=== PATIENT | female | born 1975 ===

== ENCOUNTER 2021-03-30 10:08 | Emergency (ER) | payer SELFPAY ==
[2021-03-30 10:43] VITALS: BP 150/83
--- NOTE | 2021-03-30 12:36 | Emergency Department Report ---
ED General Adult HPI - General Chief complaint: Extremity Problem,Nontraumatic Stated complaint: LT HIP PAIN Time Seen by Provider: 03/30/21 12:12 Source: patient Mode of arrival: Wheelchair Limitations: Physical Limitation - History of Present Illness Initial comments: 45-year-old female patient with history of "fatty tissue tumors" presents to the emergency department with complaints of acute exacerbation of chronic bilateral hip pain worsening over the course of this week. Patient states the pain became worse with ambulation today, prompting her to come to the emergency department. Pain is worse on the left hip. 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 She was under the care of a vascular surgeon for this issue in [place] until last year, but she has since relocated to [place] and has not establish care with a specialist here. She has taken Tylenol for pain. No new fall, trauma, injury. Pain is consistent with prior flareups. Denies fever, chills, back pain, paresthesias, numbness, weakness, loss of bladder/bowel control, urinary retention, skin color changes. Denies all other complaints at this time. - Related Data Previous Rx's Medication Instructions Recorded Last Taken Type Lidocaine [Lidoderm] 1 each TP BID #20 adh..patch 03/30/21 Unknown Rx Naproxen 500 mg PO BID #20 tablet 03/30/21 Unknown Rx Allergies Allergy/AdvReac Type Severity Reaction Status Date / Time No Known Allergies Allergy Unverified 03/30/21 10:42 ED Review of Systems ROS: Stated complaint: LT HIP PAIN Other details as noted in HPI Other: GENERAL: Negative for fever. CARDIOVASCULAR: Negative for chest pain. PULMONARY: Negative for shortness of breath. GASTROINTESTINAL: Negative for abdominal pain. MUSCULOSKELETAL: Positive for hip pain. NEUROLOGICAL: Negative for headache. INTEGUMENTARY: Negative for rash. ED Past Medical Hx - Past Medical History Previous Medical History?: No - Surgical History Additional Surgical History: right hip surgery, TL, gallbladder - Medications Home Medications: Home Medications Medication Instructions Recorded Confirmed Last Taken Type Lidocaine [Lidoderm] 1 each TP BID #20 adh..patch 03/30/21 Unknown Rx Naproxen 500 mg PO BID #20 tablet 03/30/21 Unknown Rx ED Physical Exam - General Limitations: Physical Limitation - Other Other exam information: General: Awake and alert. No acute distress. BMI >30 kg. Head: Atraumatic, normocephalic. Eyes: EOMI. Pupils are equal and round. Normal sclera and conjunctiva. ENT: Oral mucosa is moist. Normal pharyngeal exam. Neck: Supple. No lymphadenopathy. Pulmonary: No respiratory distress. Clear to auscultation bilaterally. Cardiac: Regular rate and rhythm. Pulses are palpable and equal bilaterally. No lower extremity cyanosis or edema. 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 No overlying warmth or erythema. No crepitus. No necrosis. No bony tenderness. Distal neurovascular and motor/sensory function intact. Abdomen: Soft, non-tender, non-protuberant. No guarding, rigidity, or rebound. Bowel sounds are normal. No organomegaly or masses noted. Back: Normal alignment. No CVA tenderness. Extremities: Symmetrical. Full range of motion intact. Neurological: Alert and oriented, appropriately interactive, no focal deficits. Psych: Cooperative. Appropriate mood and affect. Speech is evenly metered. Thoughts are logically construed. ED Course Vital Signs 03/30/21 10:41 Temperature 98.3 F Pulse Rate 70 Respiratory 20 Rate Blood Pressure 150/83 O2 Sat by Pulse 100 Oximetry ED Medical Decision Making - Medical Decision Making Patient presents to the emergency department with acute exacerbation of chronic bilateral hip pain. She is afebrile. Vital signs are stable. She is neurovascularly intact. Patient has previously been diagnosed with benign masses in both of these areas. No trauma. She is not currently under the care of a specialist since relocating to the [facility]. Patient was previously under the care of a vascular surgeon. Current pain is consistent with prior flareups. No clinical indication for further diagnostic work-up on an emergent basis at this time. She will be discharged home with short course of appropriate analgesics and referred to local vascular surgeon for further evaluation on an outpatient basis. Patient expressed understanding and is agreeable to plan of care. Strict return precautions provided. Repeat exam is unremarkable and benign. History, exam, diagnostic testing, and current condition do not suggest worrisome pathology to warrant further testing, continued ED treatment, admission, or surgical evaluation at this point. Given the low probability of a significant medical illness, it would be more likely to result in harm than benefit to perform further testing at this stage. Discussed findings, presumptive diagnosis, need for follow-up and specific signs/symptoms that should prompt immediate return to the emergency department. Instructions were explained in detail to the patient in addition to giving written discharge information. Patient expressed understanding and was given the opportunity to ask questions, all of which were satisfactorily answered prior to discharge home. Critical care attestation.: If time is entered above; I have spent that time in minutes in the direct care of this critically ill patient, excluding procedure time. ED Disposition Clinical Impression: Chronic hip pain Qualifiers: Laterality: bilateral Qualified Code(s): M25.551 - Pain in right hip Disposition: - TO HOME OR SELFCARE Is pt being admited?: No Does the pt Need Aspirin: No Condition: Stable Instructions: Musculoskeletal Pain, Chronic Pain (ED) Additional Instructions: Take Tylenol every 4 hours as needed for pain. Take Naprosyn twice daily with food as needed for pain. Apply Lidoderm patches to affected area as needed for pain. Apply heat to affected area as needed for pain. Gradually advance physical activity slowly as tolerated. Follow-up with [facility] next week. Call Thursday to schedule an appointment. Return to the emergency department immediately for new or worsening symptoms. Prescriptions: Lidocaine [Lidoderm] 1 each TP BID #20 adh..patch Naproxen 500 mg PO BID #20 tablet Referrals: [facility] [Provider Group] - 3-5 Days Forms: Work/School Release Form(ED) Time of Disposition: 12:36
== END 2021-03-30 14:19 | disposition home or self-care (01) ==
LOC: ED 10:08
DX: M25.551 Pain in right hip (principal); G89.29 Other chronic pain; Z79.899 Other long term (current) drug therapy; Z98.890 Other specified postprocedural states
CPT/HCPCS: 99281